=== PATIENT | male | born 1955 | race Caucasian/White ===

== ENCOUNTER 2017-03-05 07:55 | Inpatient (IN) | payer BC ==
[~2017-03-05] VITALS: Ht 180.3 cm; Wt 95.8 kg
[2017-03-05] MEDS ORDERED: fentaNYL CITRATE 100 MCG/2 ML VL ONE (10:00)
[2017-03-05] MEDS ORDERED: MIDAZOLAM HCL 1MG/1ML-2 ML VIAL ONE (10:00)
[2017-03-05] MEDS ORDERED: SODIUM CHLORIDE LOCK 20 ML ONE (10:00)
[2017-03-05] MEDS ORDERED: ONDANSETRON HCL 4 MG/2 ML VIAL ONE (10:00)
[2017-03-05] MEDS ORDERED: ATOR20TA PO (10:25)
[2017-03-05] MEDS ORDERED: LISI10TA6 PO (10:25)
[2017-03-05] MEDS ORDERED: ASPI81CH43 PO (10:27)
[2017-03-05] MEDS ORDERED: METO25TA5 PO (10:27)
[2017-03-05] MEDS ORDERED: TICA90TA PO (10:27)
[2017-03-05] MEDS ORDERED: ceFAZolin 1GM/50ML D5W 50 ML IV ONE (10:29)
[2017-03-05] MEDS ORDERED: MORPHINE SULF INJ 2 MG/ML SYRINGE 1ML IV PRN (12:45)
[2017-03-05] MEDS ORDERED: ONDANSETRON HCL 4 MG/2 ML VIAL IV PRN (12:45)
[2017-03-05] MEDS ORDERED: HYDROcodone-ACET 5/325MG TAB PO PRN (12:45)
[2017-03-05] MEDS: SODIUM CHLORIDE 0.9% 1,000 ML IV SCH (12:45)
[2017-03-05 13:38] LABS: Basophils # (auto) 0 uL; Basophils % (auto) 0.4 % (0.0-2.0); CONDITION Y; Eosinophils # (auto) 0.6 uL; Eosinophils % (auto) 6.3 % (0.0-7.0); Hematocrit 53.4 % (41.0-53.0); Hemoglobin 17.8 g/dL (13.5-17.5); Lymphocytes # (auto) 2.2 uL; Lymphocytes % (auto) 21.9 % (10.0-50.0); Mean Corpuscular Hemoglobin 29.9 pg (28.0-32.0); Mean Corpuscular Hgb Conc. 33.2 g/dL (32.0-36.0); Mean Corpuscular Volume 90.1 fL (80.0-100.0); Mean Platelet Volume 9.8 fL (7.4-10.4); Monocytes # (auto) 0.7 uL; Monocytes % (auto) 7.1 % (0.0-12.0); Neutrophils # (auto) 6.5 uL; Neutrophils % (auto) 64.3 % (37.0-80.0); Platelet Count (auto) 245 10^3/uL (140-450); Red Cell Distribution Width 15.1 % (11.6-16.0); White Blood Cell 10.1 10^3/uL (4.4-10.8)
[2017-03-05 13:55] LABS: INR 0.98 (0.9-1.15); Partial Thromboplastin Time 27.8 sec (22.64-33.71); Prothrombin Time 10.7 sec (9.37-12.3)
[2017-03-05 14:07] LABS: Albumin 3.3 g/dL (3.4-5.0); BUN/Creatinine Ratio 12.1; Calcium 8.2 mg/dL (8.5-10.1); Potassium 3.8 mmol/L (3.5-5.1)
[2017-03-05 14:10] LABS: Bilirubin, Total 1.3 mg/dL (0.2-1.0); Total Protein 6.5 g/dL (6.4-8.2)
[2017-03-05] MEDS: ASPirin 81 mg TAB PO SCH (15:30)
[2017-03-05 16:11] VITALS: BP 153/99
[2017-03-05 20:00] VITALS: BP 116/80
[2017-03-05 20:24] LABS: Urine Bilirubin Negative (Negative); Urine Color Red (Yellow); Urine Glucose Normal (Normal); Urine Ketone Negative (Negative); Urine Nitrite Negative (Negative); Urine RBC 6423 /hpf (0 - 3); Urine Urobilinogen Normal (Negative)
[2017-03-05 20:34] LABS: Urine Blood 3+ /uL (Negative)
[2017-03-05] MEDS: METOPROLOL TARTRATE 25 MG TAB PO SCH (21:50)
[2017-03-05 22:00] VITALS: BP 116/80
[2017-03-05] MEDS ORDERED: ATORVASTATIN 20 MG TAB PO SCH (22:00)
[2017-03-06] MEDS: SODIUM CHLORIDE 0.9% 1,000 ML IV SCH (02:05)
[2017-03-06 06:00] VITALS: BP 114/76
[2017-03-06 06:26] LABS: Basophils # (auto) 0.1 uL; Basophils % (auto) 0.5 % (0.0-2.0); CONDITION Y; Eosinophils # (auto) 0.4 uL; Hematocrit 52.3 % (41.0-53.0); Hemoglobin 17.2 g/dL (13.5-17.5); Lymphocytes # (auto) 1.7 uL; Lymphocytes % (auto) 15.6 % (10.0-50.0); Mean Corpuscular Hemoglobin 29.7 pg (28.0-32.0); Mean Corpuscular Hgb Conc. 32.9 g/dL (32.0-36.0); Mean Corpuscular Volume 90.3 fL (80.0-100.0); Mean Platelet Volume 9.7 fL (7.4-10.4); Monocytes # (auto) 0.8 uL; Monocytes % (auto) 7.2 % (0.0-12.0); Neutrophils # (auto) 7.9 uL; Neutrophils % (auto) 72.7 % (37.0-80.0); Platelet Count (auto) 247 10^3/uL (140-450); Red Cell Distribution Width 15.1 % (11.6-16.0); White Blood Cell 10.8 10^3/uL (4.4-10.8)
[2017-03-06 06:52] LABS: BUN/Creatinine Ratio 12.9; Calcium 8.2 mg/dL (8.5-10.1)
[2017-03-06] MEDS ORDERED: SODIUM CHLORIDE LOCK 10 ML ONE (08:07)
[2017-03-06] MEDS ORDERED: fentaNYL CITRATE 100 MCG/2 ML VL ONE (08:07)
[2017-03-06] MEDS ORDERED: MIDAZOLAM HCL 5 MG/ML-1ML VIAL ONE (08:07)
[2017-03-06] MEDS ORDERED: diphenhdrAMINE HCL 50 MG/1 ML VL ONE (08:07)
[2017-03-06] MEDS: METOPROLOL TARTRATE 25 MG TAB PO SCH (08:52)
[2017-03-06 09:00] VITALS: BP 114/73
[2017-03-06] MEDS: ASPirin 81 mg TAB PO SCH (10:00)
[2017-03-06 13:00] VITALS: BP 127/86
[2017-03-06 13:58] VITALS: BP 127/86
== END 2017-03-06 15:20 | disposition home or self-care (01) | DRG 694 ==
LOC: SUR 07:55 → EAST 07:56 → TELE-EAST 14:58
PROVIDERS: ADMIT Urology; ATTEND Internal Medicine
PROC: 0TF78ZZ Fragmentation in Left Ureter, Via Natural or Artificial Opening Endoscopic (ICD-10-PCS; principal; 2017-03-05 11:36)
PROC: 0TF68ZZ Fragmentation in Right Ureter, Via Natural or Artificial Opening Endoscopic (ICD-10-PCS; 2017-03-05 11:36)
PROC: 0DJD8ZZ Inspection of Lower Intestinal Tract, Via Natural or Artificial Opening Endoscopic (ICD-10-PCS; 2017-03-06)
DX: N13.2 Hydronephrosis with renal and ureteral calculous obstruction (principal); F17.200 Nicotine dependence, unspecified, uncomplicated; E66.9 Obesity, unspecified; I10 Essential (primary) hypertension; I25.10 Atherosclerotic heart disease of native coronary artery without angina pectoris; D12.5 Benign neoplasm of sigmoid colon; K62.9 Disease of anus and rectum, unspecified; Z95.5 Presence of coronary angioplasty implant and graft; Z68.29 Body mass index [BMI] 29.0-29.9, adult
CPT/HCPCS: 36415; 45378; 71010; 80048; 80053; 81001; 82378; 82962; 85025; 85610; 85730; J0690; J2250; J2405